=== PATIENT | female | born 1955 | race Caucasian/White ===

== ENCOUNTER 2024-02-09 11:01 | Emergency (ER) | payer MEDICARE, OTHER ==
[~2024-02-09] VITALS: Ht 170.2 cm; Wt 90.9 kg
[2024-02-09 11:01] VITALS: BP 167/102; PULSE 79; RESP 16; TEMP 98; O2SAT 97
[2024-02-09] MEDS: oxyCODONE SR 10mg (sust. release) tab PO ONE (11:25)
[2024-02-09] MEDS: cloNIDine 0.1 mg tablet PO ONE (11:27)
== END 2024-02-09 11:42 | disposition home or self-care (01) ==
LOC: ER 11:02
DX: G89.29 Other chronic pain (principal); Z76.0 Encounter for issue of repeat prescription
CPT/HCPCS: 99283

== ENCOUNTER 2024-12-11 16:54 | Emergency (ER) | payer MEDICARE, OTHER ==
[~2024-12-11] VITALS: Ht 172.7 cm; Wt 106.7 kg
[2024-12-11 17:35] LABS: BASOPHILS # (AUTO) 0.1 X10'3 (0-0.2); BASOPHILS % (AUTO) 0.7 % (0-1); EOSINOPHILS # (AUTO) 0.1 X10'3 (0-0.9); EOSINOPHILS % (AUTO) 0.8 % (0-6); HEMATOCRIT 38.9 % (35.0-45.0); HEMOGLOBIN 13.2 g/dl (12.0-16.0); LYMPHOCYTES # (AUTO) 1.6 X10'3 (1.1-4.8); LYMPHOCYTES % (AUTO) 15.3 % (21-51); MEAN CORPUSCULAR HEMOGLOBIN 32.5 PG (27.0-31.0); MEAN CORPUSCULAR HGB CONC 33.9 g/dL (33.0-36.5); MEAN CORPUSCULAR VOLUME 95.9 FL (78-98); MEAN PLATELET VOLUME 7.4 FL (7.4-10.4); MONOCYTES # (AUTO) 0.6 X10'3 (0-0.9); NEUTROPHILS # (AUTO) 7.9 X10'3 (1.8-7.7); NEUTROPHILS % (AUTO) 77.2 % (42-75); PLATELET COUNT 278 X10'3 (140-440); RED BLOOD COUNT 4.06 X10'6 (4.20-5.60); RED CELL DISTRIBUTION WIDTH 13.2 % (11.5-14.5); WHITE BLOOD COUNT 10.3 X10'3 (4.5-11.0)
[2024-12-11 17:41] LABS: ALANINE AMINOTRANSFERASE 24 U/L (12-78); ALBUMIN 3.8 G/DL (3.4-5.0); ALBUMIN/GLOBULIN RATIO 1.1 (1.1-1.5); ALKALINE PHOSPHATASE 69 IU/L (46-116); ANION GAP 8 (8-16); ASPARTATE AMINO TRANSFERASE 20 U/L (10-37); BILIRUBIN,TOTAL 0.6 MG/DL (0.1-1.0); BLOOD UREA NITROGEN 7 MG/DL (7-18); BUN/CREATININE RATIO 9.9 (10.0-20.0); CALCIUM 9.1 MG/DL (8.5-10.1); CHLORIDE 102 MMOL/L (99-107); CREATININE 0.71 MG/DL (0.40-0.90); GLUCOSE 115 MG/DL (70-104); POTASSIUM 4.1 MMOL/L (3.5-5.1); SODIUM 139 MMOL/L (135-145); TOTAL CARBON DIOXIDE 29.5 MMOL/L (24-32); TOTAL PROTEIN 7.3 G/DL (6.4-8.2); eCRCL 77 ML/MIN; eGFR 82 ML/MIN
[2024-12-11 17:50] LABS: PRO BRAIN NATRIURETIC PEPTIDE 1394 PG/ML (0-125)
[2024-12-11] MEDS: etomidate 2mg/ml inj. IV ONE (20:10)
[2024-12-11] MEDS: fentaNYL/PF 50MCG/1 ML 2ML syringe IV ONE (20:10)
[2024-12-11 21:46] VITALS: PULSE 74; RESP 14; O2SAT 95
[2024-12-11] MEDS: metoprolol tartrate 1mg/ml inj IV ONE (21:51)
[2024-12-11 22:50] VITALS: BP 135/100; PULSE 81; RESP 12; TEMP 98.2; O2SAT 96
== END 2024-12-11 22:52 | disposition home or self-care (01) ==
LOC: ER 16:55
DX: I48.20 Chronic atrial fibrillation, unspecified (principal); Z88.6 Allergy status to analgesic agent; Z98.890 Other specified postprocedural states
CPT/HCPCS: 36415; 71045; 80053; 83880; 84484; 85025; 93005; 96374; 99291; A4620; J3490; J7030

== ENCOUNTER 2025-07-26 14:19 | Emergency (ER) | payer MEDICARE, OTHER ==
[~2025-07-26] VITALS: Ht 175.3 cm; Wt 107.0 kg
[2025-07-26] MEDS ORDERED: BACL10TA2 PO (15:24)
--- NOTE | 2025-07-26 15:25 | Physician Documentation ---
History of Present Illness ~ Chief Complaint: Shoulder pain Stated Complaint: MUSCLE SPASMS Time Seen by MD: 14:49 Primary Medical Doctor: [facility] Patient is a very pleasant 70-year-old female that presents to the emergency department for evaluation of medication refill. 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 Her provider reduce her baclofen to 5 mg. Patient reports that due to increasing physical therapy and having to use additional muscles in her left arm for compensation. She has had to increase her baclofen back to the 10 mg b.i.d. versus 5 mg b.i.d.. Patient is unable to get into see her primary care provider this week. She is requesting that we refill her then of 10 mg b.i.d. until she can follow up with her primary care provider. Tetanus within 5 years?: No Medication Reconciliation Allergies: Coded Allergies: NSAIDS (Non-Steroidal Anti-Inflamma (Unverified Allergy, Severe, ASTHMA, 07/26/25) prochlorperazine (Unverified Adverse Reaction, Mild, ANXIETY, 07/26/25) Review of Systems ROS As stated above in the HPI, otherwise all systems are reviewed and negative. Physical Exam Vital Signs: Temperature: 97.6, Source: Temporal, Heart Rate: 112, Respiratory Rate: 16, BP: 164/94, Pulse Oximetry: 98, Weight: 107.000 Oxygen Flow Rate: 0 Physical Exam VITALS: Reviewed and as above. GENERAL: Alert, no apparent distress. 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 She uses baclofen at baseline for muscle spasticity and pain control. Her provider recently reduced her baclofen dose to 5 mg, but due to increased physical therapy and compensatory use of her left arm, she self-increased baclofen to 10 mg twice daily. She is unable to see her primary care provider this week and requests a refill of baclofen 10 mg twice daily until follow-up. Medical decision-making: Baclofen is FDA-approved for the treatment of spasticity and related symptoms, with recommended dosing up to 80 mg daily in divided doses. The current regimen of 10 mg twice daily (20 mg/day) is within the recommended dosing range and is appropriate for her clinical context. In elderly patients, dose selection should be cautious due to increased risk of adverse effects, including sedation and falls; the lowest effective dose is recommended, and renal function should be considered. The patient does not report any new symptoms at this time. Plan: Baclofen 10 mg twice daily will be prescribed until the patient is able to follow up with her primary care provider. The patient was counseled regarding the risks of sedation, falls, and the importance of not abruptly discontinuing baclofen. She was advised to use a calibrated measuring device for dosing and to avoid activities requiring alertness until she is familiar with the effects of the medication. No new symptoms were reported during this encounter. Follow-up: The patient will follow up with her primary care provider for ongoing management and reassessment of baclofen therapy. Differential Dx:Considerations: Include: AC separation, Adhesive capsulitis, arthritis, Bicipital tendonitis, Calcific tendonitis, Cervical disc disease, Contusion, Dislocation, Fracture: Humerus, Fracture: Scapula, Fracture: Clavicle, Gallbladder Disease, Hematoma, Impingement syndrome, Myocardial infarction, Neurovascular Injury, Rotator cuff injury, SC dislocation, Sprain, Subacromial bursitis, other Departure Disposition: 01 HOME / SELF CARE / HOMELESS Impression: Primary Impression: Medication refill Discharge Instructions: Shoulder Pain, [id number] Additional Instructions: Your Medication: Baclofen 10 mg You have been prescribed baclofen 10 mg to take twice daily (morning and evening) until you can see your primary care provider. This medication helps relax your muscles and reduce muscle spasms. How to Take Your Medication Take baclofen 10 mg by mouth twice a day You can take it with or without food If you are using liquid baclofen, use the measuring device that comes with itdo not use a household spoon Continue taking this medication until you see your primary care provider Very Important Safety Warning: Do Not Stop This Medication Suddenly Never stop taking baclofen suddenly or run out of your medication. Stopping baclofen abruptly can cause very serious problems, including: Seizures Hallucinations (seeing or hearing things that aren't there) High fever Confusion Severe muscle stiffness In rare cases, organ failure and Early warning signs that you might be having withdrawal problems include: Increased muscle spasms or stiffness Itching Tingling in your arms or legs If you notice any of these symptoms or are running low on medication, contact your healthcare provider immediately. Side Effects to Watch For Baclofen can cause drowsiness and sleepiness. This happens in more than half of people who take this medication. Do not drive, operate machinery, or do other activities that require you to be alert until you know how baclofen affects you. Avoid drinking alcohol while taking baclofen, as it can make drowsiness worse. When to Seek Medical Attention Call your doctor or go to the emergency department if you experience: Severe drowsiness or confusion Difficulty breathing Seizures Hallucinations High fever Severe muscle stiffness Any signs of withdrawal (listed above) Follow-Up Care You must follow up with your primary care provider to discuss your baclofen dose and ongoing treatment Do not adjust your dose without talking to your healthcare provider first Make sure you have enough medication until your appointment If you cannot get an appointment soon, call your provider's office to request a refill Special Considerations If you are , planning to become , or , tell your healthcare provider Tell all your healthcare providers that you are taking baclofen Keep baclofen in a safe place away from children Questions? If you have any questions about your medication or experience any concerning symptoms, contact your primary care provider or return to the emergency department. Referrals: NO PRIMARY CARE PROVIDER (PCP) Prescriptions Baclofen (Baclofen) 10 Mg Tablet 1 TAB PO Q12H for 30 Days, #90 TAB 0 Refills Prov: GRACIELA JACKSON 07/26/25 Education Educated: Patient Educated regarding: diagnosis, treatment, need for follow up Signature Scribe Signature: A Attestation: Scribed for Graciela Jackson by DEBBY Sam . 07/26/25 15:26 GRACIELA JACKSON Jul 26, 2025 15:25
[2025-07-26 15:40] VITALS: BP 136/89; PULSE 87; RESP 18; TEMP 97.6; O2SAT 99
== END 2025-07-26 15:43 | disposition home or self-care (01) ==
LOC: ER 14:20
DX: M62.838 Other muscle spasm (principal); Z76.0 Encounter for issue of repeat prescription; Z88.6 Allergy status to analgesic agent
CPT/HCPCS: 99282